=== PATIENT | male | born 1955 | race African-American/Black ===

== ENCOUNTER 2024-05-21 11:07 | Observation (INO) | payer OTHER ==
[2024-05-21 11:23] VITALS: BMI 30.1
[2024-05-21 12:49] LABS: BASO % 0.8 % (0-2.0); EOS % 0.9 % (0-4.5); HEMOGLOBIN 15.9 GM/dL (11.7-16.9); LYMPH % 21.4 % (8-40); MCH 31.1 pg (25.7-33.7); MCHC 33.8 g/dl (32.0-35.9); MEAN PLT VOLUME 7.4 fl (7.5-11.1); MONO % 7.3 % (3.8-10.2); NEUT % 69.6 % (42.8-82.8); PLATELET COUNT 340 10^3/uL (134-434); RBC 5.11 M/mm3 (4.00-5.60); RDW 13.8 % (11.9-15.9); WHITE BLOOD COUNT 6.6 K/mm3 (4.0-10.0)
[2024-05-21 13:07] LABS: CHLORIDE 106 mmol/L (98-107); SODIUM 137 mmol/L (136-145)
[2024-05-21 13:09] LABS: ALBUMIN 3.7 g/dl (3.4-5.0); CALCIUM 9.2 mg/dL (8.5-10.1)
[2024-05-21 13:10] LABS: ANION GAP 3 mmol/L (4-13); BLOOD UREA NITROGEN 12.3 mg/dL (7-18); CO2 28 mmol/L (21-32); GLUCOSE,RANDOM 101 mg/dL (74-106); MAGNESIUM 2.4 mg/dL (1.8-2.4); POTASSIUM 6.6 mmol/L (3.5-5.1)
[2024-05-21 13:13] LABS: CREATININE 1.7 mg/dL (0.55-1.3); SGOT/AST 75 U/L (15-37)
[2024-05-21 13:14] LABS: BILIRUBIN,TOTAL 1.5 mg/dL (0.2-1); SGPT/ALT 28 U/L (13-61); TOT PROT 7.9 g/dl (6.4-8.2)
[2024-05-21 13:16] LABS: ALK PHOS 66 U/L (45-117)
[2024-05-21 15:37] LABS: CALCIUM 9.9 mg/dL (8.5-10.1)
[2024-05-21 15:39] LABS: ALBUMIN 4.2 g/dl (3.4-5.0)
[2024-05-21 15:41] LABS: CREATININE 1.7 mg/dL (0.55-1.3)
[2024-05-21 15:43] LABS: BILIRUBIN,TOTAL 1.8 mg/dL (0.2-1); TOT PROT 8.3 g/dl (6.4-8.2)
[2024-05-21] MEDS ORDERED: hydrALAZINE HCL 20 MG/ML VIAL IVPUSH PRN (17:07)
[2024-05-21] MEDS ORDERED: metoPROLOL SUCCINATE 25 MG TAB.SR.24H (FP) PO ONE (21:25)
[2024-05-21] MEDS ORDERED: HEPARIN NA (PORCINE) 5,000 UNITS/ML 1ML VIAL ONE (21:25)
[2024-05-21] MEDS: HEPARIN NA (PORCINE) 5,000 UNITS/ML 1ML VIAL SQ SCH (21:37)
[2024-05-21] MEDS: metoPROLOL SUCCINATE 25 MG TAB.SR.24H (FP) PO SCH (21:37)
[2024-05-22] MEDS ORDERED: MELATONIN 5 MG TABLETS ONE (03:51)
[2024-05-22] MEDS: MELATONIN 5 MG TABLETS PO ONE (05:36)
[2024-05-22 09:07] VITALS: RESP 16
[2024-05-22] MEDS: ASPIRIN COATED 81 MG TABLET.EC PO SCH (10:15)
[2024-05-22] MEDS: HYDROCHLOROTHIAZIDE 25 MG TABLET (FP) PO SCH (10:15)
[2024-05-22] MEDS: amLODIPine BESYLATE 10 MG TABLET (FP) PO SCH (10:15)
[2024-05-22] MEDS: EZETIMIBE 10 MG TABLET (FP) PO SCH (10:16)
[2024-05-22 15:26] VITALS: BP 138/78; PULSE 54; TEMP 98.4
== END 2024-05-22 16:13 | disposition home or self-care (01) ==
LOC: JER 11:07 → JERBED 15:53
PROVIDERS: ADMIT Internal Medicine
DX: I16.0 Hypertensive urgency (principal); R20.2 Paresthesia of skin; I12.9 Hypertensive chronic kidney disease with stage 1 through stage 4 chronic kidney disease, or unspecified chronic kidney disease; N18.9 Chronic kidney disease, unspecified; N17.9 Acute kidney failure, unspecified; R00.1 Bradycardia, unspecified; Z95.1 Presence of aortocoronary bypass graft; Z91.013 Allergy to seafood
CPT/HCPCS: 36415; 71045-TC-FY; 76775-TC; 80053; 83735; 84484; 85025; 93005; 93010; 99285-25; G0378